=== PATIENT | female | born 1975 | race Asian ===

== ENCOUNTER → 2017-06-28 | Outpatient (CLI) | payer OTHER ==
--- NOTE | ~2017-06-28 | CR93 ---
[facility] A Service of [facility] & [facility] RADIOLOGY TEXT RESULTS PATIENT: BRYANT PRABHAKAR LOCATION: [facility] : 71 UNIT #: [id number] AGE: [address]: ESTHER OVALLE SEX: F ORDER DR: [id number] [facility] [address] [place], [place] [address] [id number] O MR#: [id number] Acc #: [id number] NAME: BRYANT PRABHAKAR : 1975 SEX: F STUDY DATE/TIME: 06/28/2017 11:22 UNIT: [facility] ROOM: STUDY DESCRIPTION: CR Elbow Min 3 Views Lt Attending Physician: Marko Gonzalez Referring Physician: Marko Gonzalez Ordering Physician: Marko Gonzalez Primary Care Physician: Emily Cervantes M.D. MEDICAL IMAGING REPORT This report is preliminary unless electronic signature is present EXAM Left elbow, 3 views. DATE OF EXAM 06/28/2017 HISTORY Left elbow pain for 2 months. No known injury. FINDINGS AP and lateral examination of the elbow shows satisfactory articulation of the humerus with the proximal radius and ulna. There is no identifiable fracture, dislocation, joint effusion, or radiopaque foreign body in the soft tissues. IMPRESSION Normal left elbow. Dictated by... Edgard Ryan M.D. THIS IS AN ELECTRONICALLY VERIFIED REPORT Edgard Ryan M.D. at 07/01/2017 7:30 AM JARON/david TD: 06/28/2017 22:50 JOB #: [id number] MEDICAL IMAGING REPORT Page 1 of 1 COPY
== END | disposition home or self-care (01) ==
LOC: CRAD 11:10
DX: M25.522 Pain in left elbow (principal)
CPT/HCPCS: 73080